=== PATIENT | male | born 1990 | race Caucasian/White ===

== ENCOUNTER 2020-08-06 10:39 | Emergency (ER) | payer MEDICAID ==
[~2020-08-06] VITALS: Ht 177.8 cm; Wt 68.0 kg
--- NOTE | 2020-08-06 10:39 | NUR ---
Pt BIB [facility]c/o diffuse low back pain 9/10 x30 min. Pt denies injury, reports pain is "spasms". No neuro defecits noted, ambulatory to bathroom and back to bed with steady gait. Pt placed in gown and positioned for comfort in bed. Continuous oxygen and BP Monitors applied, all safety measures observed. Dr. Alexander at bedside to evaluate pt.
[2020-08-06] MEDS ORDERED: OLAN5TAB3 PO (10:57)
[2020-08-06] MEDS ORDERED: PLEASE ENTER HEIGHT AND WEIGHT MC SCH (11:00)
[2020-08-06] MEDS ORDERED: IBUPROFEN 600 MG TABLET PO ONE (11:00)
[2020-08-06] MEDS ORDERED: IBUPROFEN 600 MG TABLET ONE (11:01)
--- NOTE | 2020-08-06 11:04 | NUR ---
Pt medicated per SEP for 10 low back pain.
[2020-08-06 11:23] LABS: MICROSCOPIC AUTO
[2020-08-06 12:04] VITALS: BP 120/82
== END 2020-08-06 12:15 | disposition home or self-care (01) ==
LOC: ED 11:09
DX: M54.6 Pain in thoracic spine (principal); M54.5 Low back pain; F17.200 Nicotine dependence, unspecified, uncomplicated
CPT/HCPCS: 81001; 99283

== ENCOUNTER 2020-08-13 02:29 | Emergency (ER) | payer MEDICAID ==
[~2020-08-13] VITALS: Ht 177.8 cm; Wt 75.8 kg
[~2020-08-13 02:29] MED LIST: OLAN5TAB3 PO
[2020-08-13 02:38] VITALS: BP 131/76
== END 2020-08-13 02:57 | disposition left against medical advice (07) ==
LOC: ED 02:49
DX: R25.2 Cramp and spasm (principal); Z72.9 Problem related to lifestyle, unspecified; Z59.0 Homelessness; Z91.14 Patient's other noncompliance with medication regimen
CPT/HCPCS: 99281

== ENCOUNTER 2020-08-13 13:55 | Emergency (ER) | payer MEDICAID ==
[~2020-08-13] VITALS: Ht 182.9 cm; Wt 80.0 kg
[2020-08-13 14:06] VITALS: BP 121/80
[2020-08-13 14:38] LABS: MICROSCOPIC INDICATED
[2020-08-13 14:46] LABS: AMPHETAMINE SCREEN, URINE Negative (Negative); BARBITURATE SCREEN, URINE Negative (Negative); BENZODIAZEPINE SCREEN, URINE Negative (Negative); CANNABINOID SCREEN, URINE Positive (Negative); COCAINE SCREEN, URINE Negative (Negative); METHADONE SCREEN, URINE Negative (Negative); OPIATE SCREEN, URINE Negative (Negative)
--- NOTE | 2020-08-13 15:06 | NUR ---
BREAK RN: MT BRIGGS AT BEDSIDE TO TALK WITH PT. PT EATING CRACKERS, DRINKING WATER.
--- NOTE | 2020-08-13 15:14 | NUR ---
REPORT TO JOHNNA DOUGHERTY
[2020-08-13 15:51] LABS: BASOPHILS % (AUTO) 1 % (0-1); EOSINOPHILS % (AUTO) 3 % (1-7); LYMPHOCYTES % (AUTO) 40 % (22-44); MEAN CORPUSCULAR HEMOGLOBIN 29.1 pg (27.5-34.5); MEAN CORPUSCULAR HGB CONC 33.5 g/dL (33.2-36.2); MEAN PLATELET VOLUME 8.8 fL (7.4-10.4); MONOCYTES % (AUTO) 9 % (2-9); NEUTROPHILS % (AUTO) 47 % (42-75); PLATELET COUNT 244 x10^3/uL (130-400); RED BLOOD COUNT 4.52 x10^6/uL (4.38-5.82); RED CELL DISTRIBUTION WIDTH 14.9 % (9.4-14.8)
[2020-08-13 15:57] LABS: ALBUMIN 3.6 g/dL (3.4-5.0); ANION GAP 7 mmol/L (5-15); CALCIUM 8.5 mg/dL (8.5-10.1); CHLORIDE 112 mmol/L (98-107); CREATININE 1.02 mg/dL (0.7-1.3); SALICYLATE LEVEL 2.2 mg/dL (2.8-20.0)
[2020-08-13] MEDS ORDERED: OLANZAPINE 5 MG TABLET PO SCH (16:00)
[2020-08-13] MEDS ORDERED: OLANZAPINE 5 MG TABLET ONE (16:17)
[2020-08-13 16:25] LABS: MD SCAN
--- NOTE | 2020-08-13 16:29 | NUR ---
This pt was calm and cooperative for duration of time in ER. MARITZA Vallejo at bedside for eval. Pt given taxi voucher and RX at discharge and this RN reviewed POC with pt including reminding him to call his mother who he reports having a good relationship with and that he needs to take the bus home tomorrow. Pt was grateful for help and left without difficulty.
== END 2020-08-13 16:29 | disposition home or self-care (01) ==
LOC: ED 14:50
DX: F20.0 Paranoid schizophrenia (principal); Z72.9 Problem related to lifestyle, unspecified
CPT/HCPCS: 36415; 80048; 80299; 80307; 80320; 80329; 81001; 82040; 85025; 99284; G0480